=== PATIENT | female | born 1995 | race African-American/Black ===

== ENCOUNTER 2016-10-23 16:06 | Inpatient (IN) | payer BC ==
[~2016-10-23] VITALS: Ht 162.6 cm; Wt 89.3 kg
[2016-10-23] MEDS ORDERED: LAMO25TA8 PO (16:15)
[2016-10-23] MEDS ORDERED: ESCI20TA36 PO (16:15)
[2016-10-23] MEDS ORDERED: ARIP15TA7 PO (16:15)
[2016-10-23] MEDS ORDERED: ZOLP5 PO (16:15)
[2016-10-23 16:36] LABS: HEMATOCRIT 42.2 % (36-46); HEMOGLOBIN 13.5 g/dL (12.0-16.0); MEAN CORPUSCULAR HEMOGLOBIN 26.8 pg (26.0-34.0); MEAN CORPUSCULAR VOLUME 84 fL (80-100); PLATELET COUNT (AUTO) 384 K/uL (150-450); RED BLOOD CELL COUNT(AUTO) 5.04 MIL/uL (4.00-5.20); RED CELL DISTRIBUTION WIDTH 14.2 % (11.5-14.5)
[2016-10-23] MEDS ORDERED: HALOPERIDOL 5 MG TABLET PO PRN (17:00)
[2016-10-23 17:14] LABS: BAND NEUTROPHILS % (MANUAL) 21 % (1-5); LYMPHOCYTES % (MANUAL) 17 % (22-44); TOTAL CELLS COUNTED 100
[2016-10-23 17:15] LABS: RBC MORPHOLOGY COMMENT NORMAL RBC MORPH
[2016-10-23 18:18] LABS: ANION GAP 15 mmol/L (8-16); CALCIUM, TOTAL 8.9 mg/dL (8.8-10.5); CARBON DIOXIDE 22 mmol/L (22-29); CHLORIDE 102 mmol/L (98-107); CREATININE 0.95 mg/dL (0.60-1.30); GLOMERULAR FILTR. RATE CALC > 60 mL/min (>60); POTASSIUM 3.8 mmol/L (3.5-5.1); SODIUM SERUM 139 mmol/L (136-145); UREA NITROGEN, BLOOD 12 mg/dL (7-18)
[2016-10-23 18:23] LABS: ALANINE AMINOTRANSFERASE 22 U/L (12-78); ALBUMIN 4.1 g/dL (3.4-5.0); ASPARTATE AMINOTRANSFERASE 14 U/L (15-37); BILIRUBIN,TOTAL 0.3 mg/dL (0.1-1.0); TOTAL PROTEIN, SERUM 8.2 g/dL (6.4-8.2)
[2016-10-23 18:53] VITALS: BP 110/71
[2016-10-23] MEDS: LORazepam 2 MG TABLET PO PRN (19:30)
[2016-10-23] MEDS ORDERED: ZOLPIDEM TARTRATE 10 MG TABLET PO SCH (21:00)
[2016-10-24 08:07] VITALS: BP 115/65
[2016-10-24] MEDS: LamoTRIgine 25 MG TABLET PO SCH (09:00)
[2016-10-24] MEDS ORDERED: ARIPiprazole 15 MG TABLET PO SCH ×2 (09:00)
[2016-10-24] MEDS ORDERED: ESCITALOPRAM OXALATE 20 MG TABLET PO SCH (09:00)
[2016-10-24] MEDS ORDERED: LamoTRIgine 25 MG TABLET PO SCH (09:00)
[2016-10-24] MEDS: ESCITALOPRAM OXALATE 20 MG TABLET PO SCH (09:46)
[2016-10-24 16:41] VITALS: BP 118/71
[2016-10-24 21:16] LABS: APPEARANCE,URINE CLEAR (CLEAR); GLUCOSE, URINE (UA) NEGATIVE (NEGATIVE); KETONES,URINE 15 mg/dL (NEGATIVE); LEUKOCYTE ESTERASE ,URINE NEGATIVE (NEGATIVE); OCCULT BLOOD,URINE NEGATIVE (NEGATIVE); PROTEIN,URINE NEGATIVE (NEGATIVE)
[2016-10-24 21:33] LABS: ADD UA MICROSCOPIC NO
[2016-10-24] MEDS: ZOLPIDEM TARTRATE 5 MG TABLET PO SCH (21:44)
[2016-10-25 08:01] VITALS: BP 137/76
[2016-10-25] MEDS: LORazepam 2 MG TABLET PO PRN ×3 (08:06→22:42)
[2016-10-25] MEDS: ESCITALOPRAM OXALATE 20 MG TABLET PO SCH (08:07)
[2016-10-25] MEDS: LamoTRIgine 25 MG TABLET PO SCH (09:00)
[2016-10-25 16:30] VITALS: BP 125/74
[2016-10-25] MEDS: ZOLPIDEM TARTRATE 5 MG TABLET PO SCH (21:22)
[2016-10-26 06:19] VITALS: BP 121/72
[2016-10-26 08:24] VITALS: BP 110/72
[2016-10-26] MEDS: LamoTRIgine 25 MG TABLET PO SCH (09:00)
[2016-10-26] MEDS: ESCITALOPRAM OXALATE 20 MG TABLET PO SCH (09:40)
[2016-10-26] MEDS ORDERED: LAMO25 PO (10:32)
[2016-10-26] MEDS ORDERED: ESCI20TA PO (10:32)
[2016-10-26] MEDS ORDERED: ZOLP5 PO (10:32)
[2016-10-26] MEDS: LORazepam 2 MG TABLET PO PRN (11:20)
== END 2016-10-26 17:45 | disposition home or self-care (01) | DRG 885 ==
LOC: EMS 16:09 → 3EI 17:23 → EMS 18:19
DX: F33.2 Major depressive disorder, recurrent severe without psychotic features (principal); R45.851 Suicidal ideations; Z79.899 Other long term (current) drug therapy; J45.909 Unspecified asthma, uncomplicated; D72.828 Other elevated white blood cell count; F12.90 Cannabis use, unspecified, uncomplicated; Z81.1 Family history of alcohol abuse and dependence; Z81.3 Family history of other psychoactive substance abuse and dependence
CPT/HCPCS: 99285; G0480